=== PATIENT | male | born 1995 ===

== ENCOUNTER 2021-01-28 12:00 | Emergency (ER) | payer SELFPAY ==
[~2021-01-28] VITALS: Ht 180.3 cm; Wt 74.8 kg
[2021-01-28 12:27] VITALS: BP 119/62
--- NOTE | 2021-01-28 12:35 | ED.ADGEN ---
General Adult EDM: Chief Complaint: LOWEREXTREMITY INJURY HPI: HPI: Patient is a 25-year-old male who arrives ambulatory to the emergency department reporting to right ankle pain. Patient reports he was play basketball when he turned his ankle. Patient states he has pain at the lateral aspect of his ankle now. Despite this he denies any pain in his foot. He denies injury otherwise. He is awake, alert and nontoxic-appearing Review of Systems: Review of Systems: Constitutional: Denies fever or chills. [] Eyes: Denies change in visual acuity. [] HENT: Denies nasal congestion or sore throat. [] Respiratory: Denies cough or shortness of breath. [] Cardiovascular: Denies chest pain or edema. [] GI: Denies abdominal pain, nausea, vomiting, bloody stools or diarrhea. [] : Denies dysuria. [] Musculoskeletal: Denies back pain or joint pain. [] Integument: Denies rash. [] Neurologic: Denies headache, focal weakness or sensory changes. [] Endocrine: Denies polyuria or polydipsia. [] Lymphatic: Denies swollen glands. [] Psychiatric: Denies depression or anxiety. [] Family History: Family History: Noncontributory Allergies: Allergies: Allergies Coded Allergies Type Severity Reaction Last Updated Verified No Known Drug Allergies 01/28/21 No Physical Exam: PE: Constitutional: Well developed, well nourished, no acute distress, non-toxic appearance. [] HENT: Normocephalic, atraumatic, bilateral external ears normal, oropharynx moist, no oral exudates, nose normal. [] Eyes: PERRLA, EOMI, conjunctiva normal, no discharge. [] Neck: Normal range of motion, no tenderness, supple, no stridor. [] Cardiovascular:Heart rate regular rhythm, no murmur [] Lungs & Thorax: Bilateral breath sounds clear to auscultation [] Abdomen: Bowel sounds normal, soft, no tenderness, no masses, no pulsatile masses. [] Skin: Warm, dry, no erythema, no rash. [] Back: No tenderness, no CVA tenderness. [] Extremities: Tenderness to palpation of the right lateral ankle. There is minimal soft tissue swelling present. No cyanosis, no clubbing, ROM intact, no edema. [] Neurologic: Alert and oriented X 3, normal motor function, normal sensory function, no focal deficits noted. [] Psychologic: Affect normal, judgement normal, mood normal. [] Current Patient Data: Vital Signs: Vital Signs Date Time Temp Pulse Resp B/P (MAP) Pulse Ox O2 Delivery O2 Flow Rate FiO2 01/28/21 12:27 97.9 72 15 119/62 (81) 98 Room Air 97.9 EKG: EKG: [] Heart Score: C/O Chest Pain: No Risk Factors: Risk Factors: DM, Current or recent (<one month) smoker, HTN, HLP, family history of CAD, obesity. Risk Scores: Score 0 - 3: 2.5% MACE over next 6 weeks - Discharge Home Score 4 - 6: 20.3% MACE over next 6 weeks - Admit for Clinical Observation Score 7 - 10: 72.7% MACE over next 6 weeks - Early Invasive Strategies Radiology/Procedures: Radiology/Procedures: [][facility] [address] [place] [address] IMAGING REPORT Signed PATIENT: SHERIE LEE ACCOUNT: [id number] : 1995 LOCATION: ER AGE: 25 SEX: M EXAM STATUS: PRE ER ORD. PHYSICIAN: STEVEN FOFANA DO REASON: Pain/injury PROCEDURE: ANKLE RIGHT 3V Site ID: [id number] EXAMINATION: XR EXAM OF ANKLE_RIGHT 3VIEWS. HISTORY: 25 years Male Reason: Pain/injury / COMPARISON: None. FINDINGS: No fracture, dislocation or radiopaque foreign body is seen at the ankle. There are nonspecific small calcifications as seen at the dorsal aspect of the foot at the level of the tarsal navicular bone, etiology is uncertain. This could be sequela of the prior injury.. The joint spaces and articular surfaces appear unremarkable. IMPRESSION: No fracture at the ankle. Tiny calcifications seen at the dorsal aspect of the talonavicular joint area could be sequela of prior injury. If there is tenderness at this location, then tiny avulsion injury could be considered. Electronically signed by: Katlin Ozuna MD (01/28/2021 12:57 PM) [id number] DICTATED and SIGNED BY: KATLIN OZUNA MD DATE: 01/28/21 [id number] 0 Course & Med Decision Making: Course & Med Decision Making Pertinent Labs and Imaging studies reviewed. (See chart for details) [] [place] Disclaimer: [place]ylon Disclaimer: This electronic medical record was generated, in whole or in part, using a voice recognition dictation system. Departure Departure Impression: Primary Impression: Right ankle sprain Disposition: HOME / SELF CARE / HOMELESS Condition: STABLE Patient Instructions: Ankle Sprain Scripts Naproxen Sodium (ANAPROX DS) 550 Mg Tablet 1 TAB PO BID for 5 Days, #10 TAB 0 Refills Prov: STEVEN FOFANA DO 01/28/21 STEVEN FOFANA DO Jan 28, 2021 12:35
--- NOTE | 2021-01-28 13:00 | RAD ---
Site ID: [id number] EXAMINATION: XR EXAM OF ANKLE_RIGHT 3VIEWS. HISTORY: 25 years Male Reason: Pain/injury / COMPARISON: None. FINDINGS: No fracture, dislocation or radiopaque foreign body is seen at the ankle. There are nonspecific small calcifications as seen at the dorsal aspect of the foot at the level of the tarsal navicular bone, e tiology is uncertain. This could be sequela of the prior injury.. The joint spaces and articular s urfaces appear unremarkable. IMPRESSION: No fracture at the ankle. Tiny calcifications seen at the dorsal aspect of the talonavicular joint ar ea could be sequela of prior injury. If there is tenderness at this location, then tiny avulsion inju ry could be considered. Electronically signed by: Jm Ozuna MD (01/28/2021 12:57 PM) [id number]
[2021-01-28] MEDS ORDERED: NAPR-682 PO (13:10)
== END 2021-01-28 13:28 | disposition home or self-care (01) ==
LOC: ER 12:00
DX: S93.401A Sprain of unspecified ligament of right ankle, initial encounter (principal); X50.9XXA Other and unspecified overexertion or strenuous movements or postures, initial encounter; Y93.67 Activity, basketball; Y92.89 Other specified places as the place of occurrence of the external cause; Y99.8 Other external cause status
CPT/HCPCS: 29515; 73610; 99284; A6450